=== PATIENT | male | born 1965 | race Caucasian/White ===

== ENCOUNTER 2017-01-27 07:40 | Day surgery (SDC) | payer MEDICAID ==
[~2017-01-27] VITALS: Ht 175.3 cm; Wt 79.5 kg
[~2017-01-27 07:40] MED LIST: RINGERS SOLUTION,LACTATED 500 ML IV ONE
[2017-01-27] MEDS ORDERED: PROPOFOL 1% 20 ML VIAL IVP ONE (07:41)
[2017-01-27] MEDS ORDERED: LIDOCAINE HCL/PF 2% 5 ML VIAL IM ONE (07:41)
[2017-01-27] MEDS ORDERED: FentaNYL CITRATE-PF 100 MCG/2 ML VIAL IVP ONE (07:41)
[2017-01-27] MEDS ORDERED: MIDAZOLAM HCL 2 MG/2 ML VIAL IVP ONE (07:41)
[2017-01-27] MEDS ORDERED: MOXIFLOXACIN HCL 0.5% 3 ML OPHTHALMIC SOLUTION ONE (07:56)
[2017-01-27] MEDS ORDERED: MitoMYcin 0.2 MG/VIAL KIT FOR OPHTHALMIC USE OS ONE (08:30)
[2017-01-27] MEDS: MOXIFLOXACIN HCL 0.5% 3 ML OPHTHALMIC SOLUTION OS SCH ×3 (08:43→08:54)
[2017-01-27] MEDS ORDERED: MethylPREDNISolone SOD SUCC 40 MG/ML VIAL IVP ONE (12:00)
[2017-01-27] MEDS ORDERED: TETRACAINE HCL/PF 0.5% 4 ML OPHTHALMIC SOLUTION OS ONE (12:00)
[2017-01-27] MEDS ORDERED: LIDOCAINE HCL 2%/EPI 1:200,000/PF 10 ML VIAL INJ ONE (12:00)
[2017-01-27] MEDS ORDERED: BUPIVACAINE HCL/PF 0.75% 10 ML VIAL INJ ONE (12:00)
[2017-01-27] MEDS ORDERED: POVIDONE-IODINE 10% 15 ML SOLUTION UD TP ONE (12:00)
[2017-01-27] MEDS ORDERED: TETRACAINE HCL VISCOUS 0.5% 5 ML OPHTHALMIC SOLUTION OS ONE (12:00)
[2017-01-27] MEDS ORDERED: NEOMYCIN/POLYMYXIN B/DEXAMETH 3.5 GM OPHTHALMIC OINTMENT OS ONE (12:00)
[2017-01-27] MEDS ORDERED: ACETAMINOPHEN 1000 MG/ISO-OSM 100 ML IV ONE ×2 (12:05→12:15)
== END 2017-01-27 12:40 | disposition home or self-care (01) ==
LOC: SURGERY 07:40
PROVIDERS: ATTEND Ophthalmology
DX: H11.052 Peripheral pterygium, progressive, left eye (principal)
CPT/HCPCS: 65426; 88304; J0131; J2250; J2704; J3010; J3490; J7120; J0690; J2920